=== PATIENT | female | born 1955 | race Caucasian/White ===

== ENCOUNTER 2016-04-18 22:35 | Emergency (ER) | payer BC ==
[2016-04-18] MEDS ORDERED: Sodium Chloride 0.9% 1,000 ML IV SCH (23:00)
[2016-04-18] MEDS ORDERED: HYDROmorphone 1 MG/ML Syringe IVPUSH ONE (23:14)
[2016-04-18] MEDS ORDERED: Ondansetron 4 MG/2 ML SDV IVPUSH ONE (23:39)
[2016-04-19 00:40] VITALS: BP 131/69
--- NOTE | 2016-04-19 00:49 | EDM.PDOC ---
ED HPI GI/ABDOMINAL - General Chief Complaint: Flank Pain Stated Complaint: RIGHT SIDE FLANK PAIN Time Seen by Provider: 04/18/16 22:52 Source: Reports: Patient, Family () History Limitations: Reports: No limitations - History of Present Illness INITIAL COMMENTS - FREE TEXT/NARRATIVE: Right flank pain, and Mrs. Esteban report were out to dinner this evening when she develops right flank pain. This pain was similar to her previous kidney stones in December 2015, pain did not resolve, made the decision to return to ER for further care and evaluation. Abdomen pelvis CT done 12/31/2015 showed bilateral nonobstructing kidney stone Timing/Duration: Reports: Hour(s): Location: RUQ Quality: Reports: stabbing, throbbing Severity: severe (Pain waxes and wanes. Rates pain at at 8/10) Context: Reports: other (Previous history of kidney stones) Associated Symptoms (-Female): Reports: loss of appetite - Related Data Allergies/ADRs: Allergies Allergy/AdvReac Type Severity Reaction Status Date / Time No Known Allergies Allergy Verified 04/18/16 23:01 Home Meds: Home Meds Aspirin [Halfprin] 81 mg PO DAILY 11/15/15 [History] Cholecalciferol (Vitamin D3) [Vitamin D3] 5,000 unit PO BID 11/15/15 [History] Lisinopril 10 mg PO DAILY 11/15/15 [History] atorvaSTATin Calcium [Atorvastatin Calcium] 10 mg PO BEDTIME 11/15/15 [History] metFORMIN HCl [Metformin HCl] 1,000 mg PO BID 11/15/15 [History] Past Medical History HEENT History: Reports: Impaired vision Cardiovascular History: Reports: Hypertension Genitourinary History: Reports: Renal 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: Endocrine/Metabolic History: Reports: Diabetes, type II - Infectious Disease History Infectious Disease History: Reports: Chicken pox, Measles, Mumps Social & Family History - Tobacco Use Smoking Status *Q: Never Smoker - Caffeine Use Caffeine Use: Reports: Tea - Recreational Drug Use Recreational Drug Use: No - Living Situation & Occupation Living situation: Reports: (Lives with in [facility]) ED ROS GENERAL - Review of Systems Review Of Systems: See Below Constitutional: Reports: other (Right flank pain) HEENT: Reports: No symptoms Respiratory: Reports: no symptoms Cardiovascular: Reports: No symptoms Endocrine: Reports: no symptoms GI/Abdominal: Reports: Decreased appetite, Nausea, Other (Right flank pain) : Reports: flank pain, hematuria (Reports urine was clear by clinic tests 2 weeks), urgency, urinary retention 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: Reports: other (Bilateral mid back pain) Skin: Reports: no symptoms Neurological: Reports: no symptoms Psychiatric: Reports: No symptoms Hematologic/Lymphatic: Reports: no symptoms Immunologic: Reports: no symptoms ED EXAM, GI/ABD - Physical Exam Exam: See Below Exam Limited By: No limitations General Appearance: alert, WD/WN, no apparent distress Eyes: bilateral: normal appearance, EOMI Ears: normal external exam, hearing grossly normal Nose: normal inspection Throat/Mouth: Normal lips Head: atraumatic, normocephalic Neck: normal inspection, supple, non-tender, full range of motion Respiratory/Chest: no respiratory distress, lungs clear, normal breath sounds, no accessory muscle use, chest non-tender Cardiovascular: normal peripheral pulses, regular rate, rhythm, no edema, no gallop, no JVD, no murmur, no rub GI/Abdominal: normal bowel sounds, soft, non tender, no organomegaly, no distention, no abnormal bruit, no mass (Female) Exam: Deferred Rectal (Female) Exam: Deferred Back Exam: normal inspection, full range of motion, NT Extremities: normal inspection, normal range of motion, non-tender, normal capillary refill, no pedal edema Neurological: alert, oriented, normal cognition, normal gait, no motor/sensory deficits Psychiatric: normal affect, normal mood Skin Exam: Warm, Dry, Intact, Normal color, No rash Lymphatic: no adenopathy Course - Vital Signs Last Recorded V/S: Last Vital Signs Temp 36.3 C 04/19/16 00:38 Pulse 66 04/19/16 00:38 Resp 16 04/19/16 00:38 BP 131/69 04/19/16 00:38 Pulse Ox 95 04/19/16 00:38 - Orders/Labs/Meds Orders: Active Orders 24 hr Category Date Time Status Kidney Stone Protocol [CT] Stat Exams 04/19/16 00:05 Taken Sodium Chloride 0.9% [Normal Saline] 1,000 ml Med 04/18/16 23:00 Active IV ASDIRECTED Medication Orders Sodium Chloride (Normal Saline) 1,000 mls @ 999 mls/hr IV ASDIRECTED [facility] Last Admin: 04/18/16 23:43 Dose: 999 mls/hr Labs: Laboratory Tests 04/18/16 Range/Units 23:35 Urine Color Brown Urine Appearance Cloudy Urine pH 5.0 (4.5-8.0) Ur Specific [place] 1.025 (1.008-1.030) Urine Protein 30 H (NEGATIVE) mg/dL Urine Glucose (UA) 100 H (NEGATIVE) mg/dL Urine Ketones Negative (NEGATIVE) mg/dL Urine Occult Blood Large (NEGATIVE) Urine Nitrite Negative (NEGATIVE) Urine Bilirubin Small (NEGATIVE) Urine Urobilinogen 1 (NORMAL) mg/dL Ur Leukocyte Esterase Small (NEGATIVE) Urine RBC >100 H (0-5) Urine WBC 0-5 (0-5) Ur Epithelial Cells Rare Amorphous Sediment Not seen Urine Bacteria Many Urine Mucus Not seen Urine Other Meds: Medications Generic Name Dose Route Start Last Admin Trade Name Freq PRN Reason Stop Dose Admin Sodium Chloride 1,000 mls @ 999 mls/hr 04/18/16 23:00 04/18/16 23:43 Normal Saline IV 999 mls/hr ASDIRECTED [facility] Administration Discontinued Medications Generic Name Dose Route Start Last Admin Trade Name Freq PRN Reason Stop Dose Admin Hydromorphone HCl 1 mg 04/18/16 23:14 04/18/16 23:52 Dilaudid IVPUSH 04/18/16 23:15 1 mg ONETIME ONE Administration Ondansetron HCl 4 mg 04/18/16 23:39 04/18/16 23:52 Zofran IVPUSH 04/18/16 23:40 4 mg ONETIME ONE Administration - Re-Assessments/Exams Free Text/Narrative Re-Assessment/Exam: 04/19/16 00:56 Given 1 L normal saline, IV Dilaudid 1 mg, Zofran [address] scan renal protocol shows bilateral kidney stones. See full report this was reviewed with patient and copy given to them Advised to followup with primary care for recheck, would recommend evaluation by urology Departure - Departure Time of Disposition: 00:59 Disposition: Home, Self-Care 01 Condition: good Clinical Impression: Bilateral kidney stones Instructions: Kidney Stones, [id number] Referrals: Peggy Vazquez PA [Primary Care Provider] - Forms: ED Department Discharge Care Plan Goals: Bilateral kidney stones -CT report shows bilateral kidney stones -Advised to push fluids, 8-10 glasses of water per day -Start Flomax 0.4 mg by mouth daily, start in a.m. -May take a previous prescription narcotic Percocet 5/325 mg take one to 2 every 4-6 when necessary pain Followup with primary care for recheck on Wednesday or Wednesday May need to consider evaluation by specialist Return to emergency room if has fever, chills, nausea, vomiting, rash, or not improved. - Problem List & Annotations (1) Bilateral kidney stones SNOMED Code(s): 85521499 Code(s): N20.0 - CALCULUS OF KIDNEY Status: Acute Priority: High Current Visit: Yes - Problem List Review Problem List Initiated/Reviewed/Updated: Yes - My Orders Last 24 Hours: My Active Orders 04/18/16 23:00 Sodium Chloride 0.9% [Normal Saline] 1,000 ml IV ASDIRECTED 04/19/16 00:05 Kidney Stone Protocol [CT] Stat - Assessment/Plan Last 24 Hours: My Active Orders 04/18/16 23:00 Sodium Chloride 0.9% [Normal Saline] 1,000 ml IV ASDIRECTED 04/19/16 00:05 Kidney Stone Protocol [CT] Stat Plan: Bilateral kidney stones -CT report shows bilateral kidney stones see full report -Advised to push fluids, 8-10 glasses of water per day -Start Flomax 0.4 mg by mouth daily, start in a.m. -May take a previous prescription narcotic Percocet 5/325 mg take one to 2 every 4-6 when necessary pain Followup with primary care for recheck on Wednesday or Wednesday May need to consider evaluation by specialist Return to emergency room if has fever, chills, nausea, vomiting, rash, or not improv
[2016-04-19] MEDS ORDERED: HYDROmorphone 1 MG/ML Syringe IVPUSH ONE (01:07)
== END 2016-04-19 01:23 | disposition home or self-care (01) ==
LOC: JP.ED 22:35
DX: N20.0 Calculus of kidney (principal); E11.9 Type 2 diabetes mellitus without complications; I10 Essential (primary) hypertension; Z87.442 Personal history of urinary calculi; Z79.82 Long term (current) use of aspirin; Z79.84 Long term (current) use of oral hypoglycemic drugs
CPT/HCPCS: 74176; 81001; 96361; 96374; 96375; 96376; 99284; J1170; J2405; J7040

== ENCOUNTER 2016-11-22 16:40 | Emergency (ER) | payer BC, OTHER ==
[2016-11-22 17:06] VITALS: BP 142/80
--- NOTE | 2016-11-22 17:21 | EDM.PDOC ---
ED HPI GENERAL MEDICAL PROBLEM - General Chief Complaint: Upper Extremity Injury/Pain Stated Complaint: JAMMED THUMB Time Seen by Provider: 11/22/16 17:05 Source of Information: Reports: Patient History Limitations: Reports: No Limitations - History of Present Illness INITIAL COMMENTS - FREE TEXT/NARRATIVE: Joleen presents to the ER today with complaints of left thumb pain after jamming her thumb while walking on a stair-case. She states she did take ibuprofen yesterday and had some pain relief with its use. Onset Date: 11/21/16 Duration: Hour(s): Location: Reports: Other (Left thumb) Quality: Reports: Ache, Dull, Throbbing Severity: Moderate Improves with: Reports: Medication, Rest Worsens with: Reports: Movement Left 1-Thumb Pain Score (Numeric/FACES): 4 - Related Data Allergies Allergy/AdvReac Type Severity Reaction Status Date / Time No Known Allergies Allergy Verified 11/22/16 17:06 Home Meds: Home Meds Aspirin [Halfprin] 81 mg PO DAILY 11/15/15 [History] Lisinopril 10 mg PO DAILY 11/15/15 [History] atorvaSTATin Calcium [Atorvastatin Calcium] 10 mg PO BEDTIME 11/15/15 [History] metFORMIN HCl [Metformin HCl] 1,000 mg PO BID 11/15/15 [History] Cholecalciferol (Vitamin D3) [Vitamin D3] 1 cap PO BID 11/22/16 [History] Past Medical History HEENT History: Reports: Impaired Vision Cardiovascular History: Reports: High Cholesterol, Hypertension Genitourinary History: Reports: Renal 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: Endocrine/Metabolic History: Reports: Diabetes, Type II - Infectious Disease History Infectious Disease History: Reports: Chicken Pox, Measles, Mumps Social & Family History - Tobacco Use Smoking Status *Q: Never Smoker - Caffeine Use Caffeine Use: Reports: Tea - Recreational Drug Use Recreational Drug Use: No - Living Situation & Occupation Living situation: Reports: Review of Systems - Review of Systems Review Of Systems: See Below Constitutional: Denies: Chills, Fever 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: Reports: Hand Pain, Other (left thumb pain and swelling.) Skin: Reports: Bruising, Other (edema) Neurological: Reports: No Symptoms ED EXAM, GENERAL - Physical Exam Exam: See Below Free Text/Narrative:: Joleen presents to the emergency room today with complaints of left thumb pain after injury 24 hours ago. She jammed her left thumb while using the stairs yesterday. She denies deformity at time of injury. She tried use of ibuprofen last night for pain with some relief. Left thumb tender with edema and ecchymosis. Full sensation in tact with decrease ROM. Exam Limited By: No Limitations General Appearance: Alert, WD/WN, Mild Distress Respiratory/Chest: No Respiratory Distress, Lungs Clear, Normal Breath Sounds, No Accessory Muscle Use, Chest Non-Tender Cardiovascular: Normal Peripheral Pulses, Regular Rate, Rhythm, No Edema, No Murmur, No Rub Peripheral Pulses: 2+: Radial (L), Radial (R) Extremities: Normal Capillary Refill, Other (tenderness, ecchymosis and edema to left thumb, decrease ROM. ) Neurological: Alert, Oriented, CN II-XII Intact, Normal Cognition, Normal Gait, Normal Reflexes, No Motor/Sensory Deficits Psychiatric: Normal Affect, Normal Mood Skin Exam: Warm, Dry, Intact, No Rash, Ecchymosis Lymphatic: No Adenopathy Course - Vital Signs Last Recorded V/S: Last Vital Signs Temp 37.3 C 11/22/16 17:04 Pulse 77 11/22/16 17:04 Resp 16 11/22/16 17:04 BP 142/80 H 11/22/16 17:04 Pulse Ox 98 11/22/16 17:04 - Orders/Labs/Meds Orders: Active Orders 24 hr Category Date Time Status Fingers Thumb Lt FA [CR] Stat Exams 11/22/16 17:15 Taken - Radiology Interpretation Free Text/Narrative:: X-ray reviewed, wet read. nondisplaced thumb fracture of the distal phalanx. Reviewed x-ray with patient, all her questions answered. Thumb splint applied, she can follow up with ortho this week. Departure - Departure Time of Disposition: 17:46 Disposition: Home, Self-Care 01 Condition: Good Clinical Impression: Closed fracture of distal phalanx of left thumb - Discharge Information Referrals: Peggy Vazquez PA [Primary Care Provider] - Forms: ED Department Discharge Additional Instructions: You have a nondisplaced left thumb distal phalanx fracture. Keep splint on at all times, except bathing. You can take ibuprofen (Motrin, Advil) 800mg by mouth three times a day with food for pain as needed. Alternate with: Acetaminophen (tylenol) 650 to 1000mg by mouth three times a day for pain as needed. Rest, elevate and ie your thumb to help with the pain. Follow up with Ortho this week for a recheck. Return for worsening issues or concerns. - My Orders Last 24 Hours: My Active Orders 11/22/16 17:15 Fingers Thumb Lt FA [CR] Stat - Assessment/Plan Last 24 Hours: My Active Orders 11/22/16 17:15 Fingers Thumb Lt FA [CR] Stat Assessment:: Nondisplaced left thumb distal phalanx fracture. Thumb splint placed. Plan: Patient has a nondisplaced left thumb distal phalanx fracture. Keep splint on at all times, except bathing. She can take ibuprofen (Motrin, Advil) 800mg by mouth three times a day with food for pain as needed. Alternate with: Acetaminophen (tylenol) 650 to 1000mg by mouth three times a day for pain as needed. Rest, elevate and ie your thumb to help with the pain. Follow up with Ortho this week for a recheck. Return for worsening issues or concerns.
--- NOTE | 2016-11-23 11:07 | CR ---
Fingers Thumb Lt FA INDICATION: pain to left thumb FINDINGS: Acute, mildly displaced, transverse fracture through the distal phalanx of the left thumb.
== END 2016-11-22 18:05 | disposition home or self-care (01) ==
LOC: JP.ED 16:40
DX: S62.525A Nondisplaced fracture of distal phalanx of left thumb, initial encounter for closed fracture (principal); I10 Essential (primary) hypertension; E11.9 Type 2 diabetes mellitus without complications; Z79.84 Long term (current) use of oral hypoglycemic drugs; Z79.82 Long term (current) use of aspirin; W23.1XXA Caught, crushed, jammed, or pinched between stationary objects, initial encounter; Y99.0 Civilian activity done for income or pay
CPT/HCPCS: 73140-26-FA; 73140-FA; 99284

== ENCOUNTER 2019-01-10 07:03 | Emergency (ER) | payer BC ==
[2019-01-10 07:18] VITALS: BP 154/63; PULSE 76
--- NOTE | 2019-01-10 07:33 | EDM.PDOC ---
ED HPI GENERAL MEDICAL PROBLEM - General Chief Complaint: Genitourinary Problem Stated Complaint: MAYBE KIDNEY STONES??? Time Seen by Provider: 01/10/19 07:27 Source of Information: Reports: Patient, Family, RN Notes Reviewed History Limitations: Reports: No Limitations - History of Present Illness INITIAL COMMENTS - FREE TEXT/NARRATIVE: 63-year-old female presents emergency department with a complaint of left flank pain, she has extensive history of nephrolithiasis believes this is a similar event pain started last night did have some nausea and vomiting no fevers no other symptoms Left Middle Back Pain Score (Numeric/FACES): 8 - Related Data Allergies Allergy/AdvReac Type Severity Reaction Status Date / Time No Known Allergies Allergy Verified 01/10/19 07:17 Home Meds: Home Meds Aspirin [Halfprin] 81 mg PO DAILY 11/15/15 [History] Lisinopril 10 mg PO DAILY 11/15/15 [History] atorvaSTATin Calcium [Atorvastatin Calcium] 10 mg PO BEDTIME 11/15/15 [History] metFORMIN HCl [Metformin HCl] 1,000 mg PO BID 11/15/15 [History] Cholecalciferol (Vitamin D3) [Vitamin D3] 5,000 units PO BID 11/22/16 [History] Ubidecarenone [Coenzyme Q-10] 1 cap PO DAILY 10/04/18 [History] Ketorolac [Toradol] 10 mg PO TID PRN #20 tab 01/10/19 [Rx] Past Medical History HEENT History: Reports: Impaired Vision, Other (See Below) Other HEENT History: wears glasses Cardiovascular History: Reports: High Cholesterol, Hypertension, Other (See Below) Other Cardiovascular History: EKG and echo done in October, EKG showed some abnormalities Genitourinary History: Reports: 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: 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 History: Reports: Fracture Other 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 History: left thumb Endocrine/Metabolic History: Reports: Diabetes, Type II Hematologic History: Reports: Iron Deficiency - Infectious Disease History Infectious Disease History: Reports: Chicken Pox, Measles, Mumps - Past Surgical History Cardiovascular Surgical History: Reports: None Female Surgical History: Reports: Cystoscopy, Kidney stone extraction, Lithotripsy/[facility] Endocrine Surgical History: Reports: None 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 Surgical History: Reports: None Social & Family History - Family History Family Medical History: Noncontributory - Tobacco Use Smoking Status *Q: Never Smoker Second Hand Smoke Exposure: No - Caffeine Use Caffeine Use: Reports: Tea Caffeine Use Comment: rarely - Recreational Drug Use Recreational Drug Use: No - Living Situation & Occupation Living situation: Reports: ED ROS GENERAL - Review of Systems Review Of Systems: See Below Constitutional: Denies: Fever, Chills HEENT: Reports: No Symptoms Respiratory: Reports: No Symptoms Cardiovascular: Reports: No Symptoms GI/Abdominal: Reports: Abdominal Pain, Nausea, Vomiting : Reports: Flank Pain ED EXAM, RENAL/ - Physical Exam Exam: See Below Exam Limited By: No Limitations General Appearance: Alert, WD/WN, No Apparent Distress Respiratory/Chest: No Respiratory Distress, Lungs Clear, Normal Breath Sounds, No Accessory Muscle Use, Chest Non-Tender Cardiovascular: Regular Rate, Rhythm, No Murmur GI/Abdominal: Soft, Non-Tender Back Exam: Normal Inspection, Full Range of Motion, CVA Tenderness (L) Course - Vital Signs Last Recorded V/S: Last Vital Signs Temp 97.1 F 01/10/19 07:15 Pulse 76 01/10/19 07:15 Resp 16 01/10/19 07:15 BP 154/63 H 01/10/19 07:15 Pulse Ox 100 01/10/19 07:15 - Orders/Labs/Meds Orders: Active Orders 24 hr Category Date Time Status UA W/MICROSCOPIC [URIN] Urgent Lab 01/10/19 07:07 Ordered Meds: Medications Discontinued Medications Generic Name Dose Route Start Last Admin Trade Name Sixto PRN Reason Stop Dose Admin Ketorolac Tromethamine 60 mg 01/10/19 07:31 01/10/19 07:49 Toradol IM 01/10/19 07:32 60 mg ONETIME ONE Administration Ondansetron HCl 4 mg 01/10/19 07:31 01/10/19 07:49 Zofran Odt PO 01/10/19 07:32 4 mg ONETIME ONE Administration Departure - Departure Time of Disposition: 08:45 Disposition: Home, Self-Care 01 Condition: Fair Clinical Impression: Hydronephrosis with renal and ureteral calculus obstruction - Discharge Information Instructions: Kidney Stones, [id number] Referrals: Peggy Vazquez PA [Primary Care Provider] - Forms: ED Department Discharge Additional Instructions: Continue to use Toradol as needed for pain control, your medications have been faxed to [facility], your CT scan was also sent to [facility]. Please contact your urologist today for an appointment time with further evaluation, call or return to the emergency department worsening of symptoms - My Orders Last 24 Hours: My Active Orders 01/10/19 07:07 UA W/MICROSCOPIC [URIN] Urgent - Assessment/Plan Last 24 Hours: My Active Orders 01/10/19 07:07 UA W/MICROSCOPIC [URIN] Urgent Plan: Assessment Acuity = acute Site and laterality = 8 mm nephrolithiasis left ureter causing moderate hydronephrosis Etiology = unknown Manifestations = nausea Location of injury = Home Lab values = CT scan described as noted above Plan I did review CT scan results with her and provided her a copy of also sent the films to her urologist at [facility]. She did get good relief from the Toradol provided prescription written for Toradol 10 mg p.o. 3 times daily as needed total #20 faxed to [facility] she is going to contact her urologist today for an upcoming appointment. This stone is very similar to the stone she had last year in 2018 This note was dictated using [employer] voice recognition software please call with any questions on syntax or grammar.
[2019-01-10] MEDS: Ketorolac 60 MG/2 ML SDV IM ONE (07:49)
[2019-01-10] MEDS: Ondansetron 4 MG Tab.DIS PO ONE (07:49)
--- NOTE | 2019-01-10 08:22 | CRLCT ---
HISTORY: Left flank pain. COMPARISON: CT abdomen and pelvis 11/19/2017. Technique noncontrast CT abdomen pelvis. Coronal sagittal reformatted images obtained. Findings: Heart size is normal. Lung bases are clear. The spleen unenhanced liver pancreas is unremarkable. Small hiatal hernia. Gallbladder is unremarkable. No abdominal aortic aneurysm. Bilateral nonobstructing renal calculi. There is moderate left hydronephrosis and hydroureter with a 8 mm stone in the mid ureter possible additional tiny stones at this location. This has a very similar appearance to the prior CT scan from 2018 with stone near the same location. There is perinephric stranding. Hounsfield units of 1160. Urinary bladder is unremarkable. Diverticulosis. Abundant stool in the colon. Normal appendix. Impression : 1. Left moderate hydronephrosis and hydroureter with the 8 millimeter left mid ureteral stone. Hounsfield unit 11 60. This has a very similar appearance to the prior CT scan with stone near the same location. Additional bilateral nonobstructing renal calculi Please note that all CT scans at this facility use dose modulation, iterative reconstruction, and/or weight-based dosing when appropriate to reduce radiation dose to as low as reasonably achievable. Dictated by Opal Forte MD @ Jan 10 2019 8:14AM Signed by Dr. Opal Forte @ Jan 10 2019 8:21AM
== END 2019-01-10 09:11 | disposition home or self-care (01) ==
LOC: JP.ED 07:03
DX: N13.2 Hydronephrosis with renal and ureteral calculous obstruction (principal); E78.00 Pure hypercholesterolemia, unspecified; I10 Essential (primary) hypertension; E11.9 Type 2 diabetes mellitus without complications; Z79.82 Long term (current) use of aspirin; Z79.899 Other long term (current) drug therapy; Z79.84 Long term (current) use of oral hypoglycemic drugs
CPT/HCPCS: 74176; 96372; 99284-25; A9270-GY; J1885

== ENCOUNTER 2020-09-23 11:40 | Emergency (ER) | payer OTHER, BC ==
[2020-09-23 12:03] VITALS: BP 126/69; PULSE 80
--- NOTE | 2020-09-23 12:36 | EDM.PDOC ---
ED HPI GENERAL MEDICAL PROBLEM - General Chief Complaint: Upper Extremity Injury/Pain Stated Complaint: FELL AND HIT RIGHT ARM AND SHOULDER Time Seen by Provider: 09/23/20 12:11 Source of Information: Reports: Patient History Limitations: Reports: No Limitations - History of Present Illness INITIAL COMMENTS - FREE TEXT/NARRATIVE: 65 yo female presents to ER with pain in right arm after fall. She was carrying boxes and lost her balance falling on to the right upper arm. she also hit her forehead and tried to catch herself with her left arm. denies LOC or current headache. pain in right upper arm and shoulder. right arm Pain Score (Numeric/FACES): 8 - Related Data Allergies Allergy/AdvReac Type Severity Reaction Status Date / Time No Known Allergies Allergy Verified 09/23/20 12:04 Home Meds: Home Meds Aspirin [Halfprin] 81 mg PO DAILY 11/15/15 [History] Lisinopril 10 mg PO DAILY 11/15/15 [History] atorvaSTATin Calcium [Atorvastatin Calcium] 10 mg PO BEDTIME 11/15/15 [History] metFORMIN HCl [Metformin HCl] 1,000 mg PO BID 11/15/15 [History] Cholecalciferol (Vitamin D3) [Vitamin D3] 5,000 units PO BID 11/22/16 [History] Ubidecarenone [Coenzyme Q-10] 1 cap PO DAILY 10/04/18 [History] Ketorolac [Toradol] 10 mg PO TID PRN #20 tab 01/10/19 [Rx] Past Medical History HEENT History: Reports: Impaired Vision, Other (See Below) Other HEENT History: wears glasses Cardiovascular History: Reports: High Cholesterol, Hypertension, Other (See Below) Other Cardiovascular History: EKG and echo done in October, EKG showed some abnormalities Genitourinary History: Reports: Renal Calculus 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: 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 History: Reports: Fracture Other 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 History: left thumb Endocrine/Metabolic History: Reports: Diabetes, Type II Hematologic History: Reports: Iron Deficiency - Infectious Disease History Infectious Disease History: Reports: Chicken Pox, Measles, Mumps - Past Surgical History Cardiovascular Surgical History: Reports: None Female Surgical History: Reports: Cystoscopy, Kidney stone extraction, Lithotripsy/[facility] Endocrine Surgical History: Reports: None 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 Surgical History: Reports: None Social & Family History - Family History Family Medical History: No Pertinent Family History - Tobacco Use Tobacco Use Status *Q: Never Tobacco User - Caffeine Use Caffeine Use: Reports: Tea Caffeine Use Comment: rarely - Recreational Drug Use Recreational Drug Use: No - Living Situation & Occupation Living situation: Reports: Review of Systems - Review of Systems Review Of Systems: See Below Constitutional: Denies: Chills, Fever Respiratory: Denies: Shortness of Breath, Cough Cardiovascular: Denies: Chest Pain 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: Reports: Arm Pain, Joint Pain Skin: Denies: Rash ED EXAM, GENERAL - Physical Exam Exam: See Below Exam Limited By: No Limitations General Appearance: Alert, WD/WN, No Apparent Distress Head: Normocephalic, Other (superficial abrasion to the forehead ) Neck: Normal Inspection, Supple, Non-Tender, Full Range of Motion. No: Tender Midline Respiratory/Chest: Lungs Clear. No: Crackles, Rhonchi, Wheezing Cardiovascular: Regular Rate, Rhythm, No Murmur GI/Abdominal: Soft, Non-Tender Extremities: Arm Pain (midshaft to right humeral proximal head tenderness to palpation, moderate edema) Course - Vital Signs Last Recorded V/S: Last Vital Signs Temp 36.4 C 09/23/20 11:57 Pulse 80 09/23/20 11:57 Resp 12 09/23/20 11:57 BP 126/69 09/23/20 11:57 Pulse Ox 98 09/23/20 11:57 - Orders/Labs/Meds Orders: Active Orders 24 hr Category Date Time Status Glucose [Blood Glucose Check, Bedside] [RC] ONETIME Care 09/23/20 13:38 Active Sodium Chloride 0.9% [Saline Flush] Med 09/23/20 13:33 Active 10 ml FLUSH ASDIRECTED PRN Saline Lock Insert [OM.PC] Routine Oth 09/23/20 13:33 Ordered Medication Orders Sodium Chloride (Sodium Chloride 0.9% 10 Ml Syringe) 10 ml FLUSH ASDIRECTED PRN PRN Reason: Keep Vein Open Last Admin: 09/23/20 13:49 Dose: 10 ml Documented by: MICHAEL Labs: Laboratory Tests 09/23/20 Range/Units 14:03 POC Glucose 139 H (74-106) mg/dL Meds: Medications Generic Name Dose Route Start Last Admin Trade Name Freq PRN Reason Stop Dose Admin Sodium Chloride 10 ml 09/23/20 13:33 09/23/20 13:49 Sodium Chloride 0.9% 10 Ml Syringe FLUSH 10 ml ASDIRECTED PRN Administration Keep Vein Open Discontinued Medications Generic Name Dose Route Start Last Admin Trade Name Sixto PRN Reason Stop Dose Admin Morphine Sulfate 2 mg 09/23/20 13:32 09/23/20 13:47 Morphine 2 Mg/Ml Syringe IVPUSH 09/23/20 13:33 2 mg ONETIME ONE Administration Ondansetron HCl 4 mg 09/23/20 13:32 09/23/20 13:48 Ondansetron 4 Mg/2 Ml Sdv IVPUSH 09/23/20 13:33 4 mg ONETIME ONE Administration - Re-Assessments/Exams Free Text/Narrative Re-Assessment/Exam: 09/23/20 14:02 x-ray proximal right humerus head fracture. Dr. Mustafa consulted. pt placed in a sling and will follow-up with him next week. 09/23/20 14:11 Departure - Departure Time of Disposition: 14:11 Disposition: Home, Self-Care 01 Clinical Impression: Fracture of humeral head, right, closed Qualifiers: Encounter type: initial encounter Qualified Code(s): S42.291A - Other displaced fracture of upper end of right humerus, initial encounter for closed fracture - Discharge Information *PRESCRIPTION DRUG MONITORING PROGRAM REVIEWED*: Not Applicable *COPY OF PRESCRIPTION DRUG MONITORING REPORT IN PATIENT TIFF: Not Applicable Instructions: Humerus Fracture Treated With Immobilization, [id number]-[id number] Referrals: Genevieve Cortes MD [Primary Care Provider] - Forms: ED Department Discharge Additional Instructions: keep sling in place until you follow-up next week with orthopedics call Dr. Mustafa today to make appointment for next week norco 1 tablet every 4 hours as needed for pain ibuprofen 400-600 mg every 6 hours fro pain ice as much as possible over the next 3 days Sepsis Event Note (ED) - Evaluation Sepsis Screening Result: No Definite Risk - Focused Exam Vital Signs: Vital Signs Temp Pulse Resp BP Pulse Ox 09/23/20 11:57 36.4 C 80 12 126/69 98 - My Orders Last 24 Hours: My Active Orders 09/23/20 13:33 Sodium Chloride 0.9% [Saline Flush] 10 ml FLUSH ASDIRECTED PRN Saline Lock Insert [OM.PC] Routine 09/23/20 13:38 Glucose [Blood Glucose Check, Bedside] [RC] ONETIME - Assessment/Plan Last 24 Hours: My Active Orders 09/23/20 13:33 Sodium Chloride 0.9% [Saline Flush] 10 ml FLUSH ASDIRECTED PRN Saline Lock Insert [OM.PC] Routine 09/23/20 13:38 Glucose [Blood Glucose Check, Bedside] [RC] ONETIME
--- NOTE | 2020-09-23 13:24 | CR ---
Humerus Rt, Shoulder Comp Rt CLINICAL HISTORY: Trauma FINDINGS: There is a comminuted minimally displaced fracture of the proximal humerus extending through the greater tubercle. IMPRESSION: Comminuted minimally displaced fracture of the proximal humerus Shoulder Comp Rt CLINICAL HISTORY: Trauma FINDINGS: There is a minimally displaced comminuted fracture of the proximal humerus. There is no evidence of dislocation. Scapula appears intact. Impression: Proximal humeral fracture
[2020-09-23] MEDS ORDERED: Morphine 2 MG/ML SYRINGE IVPUSH ONE (13:32)
[2020-09-23] MEDS ORDERED: Ondansetron 4 MG/2 ML SDV IVPUSH ONE (13:32)
[2020-09-23] MEDS ORDERED: Sodium Chloride 0.9% 10 ML Syringe FLUSH PRN (13:33)
[2020-09-23] MEDS ORDERED: Ketorolac 10 MG Tab PO ONE (14:38)
[2020-09-23] MEDS ORDERED: Acetaminophen/HYDROcodone 325-5 MG Tab PO ONE (14:39)
== END 2020-09-23 14:57 | disposition home or self-care (01) ==
LOC: JP.ED 11:40
DX: S42.291A Other displaced fracture of upper end of right humerus, initial encounter for closed fracture (principal); E78.00 Pure hypercholesterolemia, unspecified; I10 Essential (primary) hypertension; E11.9 Type 2 diabetes mellitus without complications; Z79.84 Long term (current) use of oral hypoglycemic drugs; Z79.82 Long term (current) use of aspirin; Z79.899 Other long term (current) drug therapy; W01.0XXA Fall on same level from slipping, tripping and stumbling without subsequent striking against object, initial encounter
CPT/HCPCS: 73030; 73060; 82947; 96374; 96375; 99283; A9270; J2270; J2405

== ENCOUNTER 2023-01-26 17:44 | Inpatient (IN) | payer MEDICARE, BC ==
[2023-01-26] MEDS ORDERED: Acetaminophen/HYDROcodone 325-5 MG Tab PO ONE (18:58)
[2023-01-26 19:12] LABS: BASOPHILS ABSOLUTE AUTO 0.02 K/uL (0.00-0.10); BASOPHILS PERCENT AUTO 0.4 % (0.1-1.3); HEMATOCRIT 41.4 % (34.3-46.0); IMMATURE GRAN ABSOLUTE AUTO 0.01 K/uL (0.00-0.23); IMMATURE GRAN PERCENT AUTO 0.2 % (0.0-0.7); LYMPHOCYTES ABSOLUTE AUTO 1.34 K/uL (0.8-3.3); LYMPHOCYTES PERCENT AUTO 25.5 % (11.4-47.7); MEAN CORPUSCULAR HGB CONC 33.8 g/dL (31.6-35.5); MEAN CORPUSCULAR VOLUME 85.7 fL (81.4-99.0); MONOCYTES PERCENT AUTO 9.5 % (3.3-12.6); NEUTROPHILS ABSOLUTE AUTO 3.38 K/uL (1.0-7.6); NEUTROPHILS PERCENT AUTO 64.4 % (40.0-78.1); PLATELET COUNT,PLT 191 K/uL (130-375); RED BLOOD CELL COUNT 4.83 M/uL (3.77-5.24); WHITE BLOOD CELL COUNT,WBC 5.3 K/uL (3.2-11.0)
[2023-01-26 19:48] LABS: A/G RATIO 1.3 (1.2-2.2); ALANINE AMINOTRANSFERASE,ALT 38 U/L (12-78); ALBUMIN 4.3 g/dL (3.4-5.0); ALKALINE PHOSPHATASE 74 U/L (46-116); ASPARTATE AMNIOTRANSFERASE,AST 20 U/L (15-37); BILIRUBIN TOTAL 0.6 mg/dL (0.2-1.0); BLOOD UREA NITROGEN,BUN 20 mg/dL (7-18); CALCIUM 9.3 mg/dL (8.5-10.1); CARBON DIOXIDE,CO2 25 mmol/L (21-32); CHLORIDE,CL 101 mmol/L (100-108); CREATININE 0.7 mg/dL (0.6-1.0); EST CRCL DRUG DOSING (CG) 69.19 mL/min; ESTIMATED GFR 96 mL/min (>60); GLUCOSE RANDOM 190 mg/dL (74-106); POTASSIUM,K 4.4 mmol/L (3.6-5.2); PROTEIN TOTAL,TP 7.6 g/dL (6.4-8.2); SODIUM,NA 138 mmol/L (140-148)
[2023-01-26 19:59] LABS: ANION GAP 16.4 mmol/L (5.0-14.0)
[2023-01-26 20:20] LABS: CORONAVIRUS COVID-19 NAA NEGATIVE (NEGATIVE); INFLUENZA A NAA NEGATIVE (NEGATIVE); INFLUENZA B NAA NEGATIVE (NEGATIVE); RESPIRATORY SYNCYTIAL VIR NAA NEGATIVE (NEGATIVE)
[2023-01-26] MEDS ORDERED: Acetaminophen/HYDROcodone 325-5 MG Tab PO PRN (21:28)
[2023-01-26] MEDS ORDERED: Ondansetron 4 MG Tab.DIS PO PRN (21:28)
[2023-01-26] MEDS ORDERED: Bisacodyl 5 MG Tab PO PRN (21:28)
[2023-01-26] MEDS ORDERED: Pantoprazole 40 MG Vial IV ONE (21:28)
[2023-01-26] MEDS ORDERED: Docusate Sodium 100 MG Cap PO PRN (21:28)
[2023-01-26] MEDS ORDERED: Ondansetron 4 MG/2 ML SDV IV PRN (21:28)
[2023-01-26] MEDS ORDERED: Naloxone 0.4 MG/ML SDV IVPUSH PRN (21:34)
[2023-01-26] MEDS: Sodium Chloride 0.9% 1,000 ML IV SCH (22:11)
[2023-01-26] MEDS: HYDROmorphone 1 MG/ML Syringe IVPUSH PRN (22:23)
[2023-01-27 00:19] LABS: APPEARANCE,URINE CLEAR (CLEAR); BILIRUBIN,URINE NEGATIVE (NEGATIVE); COLOR,URINE YELLOW (YELLOW); GLUCOSE,URINE 500 mg/dL (NEGATIVE); KETONES,URINE 15 mg/dL (NEGATIVE); LEUKOCYTE ESTERASE,URINE NEGATIVE (NEGATIVE); NITRITE,URINE NEGATIVE (NEGATIVE); OCCULT BLOOD,URINE TRACE-INTACT (NEGATIVE); PROTEIN,URINE NEGATIVE (NEGATIVE)
[2023-01-27 01:24] LABS: AMORPHOUS SEDIMENT,URINE NOT SEEN; BACTERIA,URINE RARE; EPITHELIAL CELLS,URINE FEW; MUCUS,URINE NOT SEEN; RBC,URINE 0-5 (0-5); WBC,URINE 0-5 (0-5)
[2023-01-27] MEDS: HYDROmorphone 1 MG/ML Syringe IVPUSH PRN ×3 (03:50→09:36)
[2023-01-27] MEDS: Sodium Chloride 0.9% 1,000 ML IV SCH (06:15)
[2023-01-27] MEDS: Insulin Lispro 100 Unit/ML 3 ML KwikPen SUBCUT SCH ×4 (07:55→21:02)
[2023-01-27] MEDS ORDERED: Neostigmine Methylsulfate 10 MG/10 ML MDV ONE (08:27)
[2023-01-27] MEDS ORDERED: Ondansetron 4 MG/2 ML SDV ONE (08:27)
[2023-01-27] MEDS ORDERED: Succinylcholine 200 MG/10 ML MDV ONE (08:27)
[2023-01-27] MEDS ORDERED: Propofol 200 MG/20 ML SDV ONE (08:27)
[2023-01-27] MEDS ORDERED: Glycopyrrolate 0.2 MG/ML 5 ML MDV ONE (08:27)
[2023-01-27] MEDS ORDERED: fentaNYL 250 MCG/5 ML SDV ONE (08:27)
[2023-01-27] MEDS ORDERED: Dexamethasone 4 MG/ML SDV ONE (08:27)
[2023-01-27] MEDS ORDERED: Rocuronium 50 MG/5 ML Vial ONE (08:27)
[2023-01-27] MEDS: Lisinopril 10 MG Tab PO SCH (09:38)
[2023-01-27] MEDS: Empagliflozin 10 MG Tab PO SCH (09:46)
[2023-01-27] MEDS ORDERED: ceFAZolin 1 GM Vial ONE (11:25)
[2023-01-27] MEDS ORDERED: Sodium Chloride 0.9% 10 ML ONE (11:25)
[2023-01-27] MEDS: Bupivacaine 0.5% 50 ML MDV ONE ×2 (11:44→12:20)
[2023-01-27] MEDS ORDERED: Acetaminophen/HYDROcodone 325-5 MG Tab PO PRN (12:36)
[2023-01-27] MEDS ORDERED: Sodium Chloride 0.9% 1,000 ML IV SCH (12:45)
[2023-01-27] MEDS: traMADol 50 MG Tab PO PRN ×3 (13:52→23:55)
[2023-01-27] MEDS: metFORMIN 500 MG Tab PO SCH (17:35)
[2023-01-27] MEDS ORDERED: Aspirin 81 MG Tab.EC PO SCH (21:00)
[2023-01-28] MEDS: Acetaminophen/HYDROcodone 325-5 MG Tab PO PRN ×2 (03:06→09:48)
[2023-01-28] MEDS: traMADol 50 MG Tab PO PRN ×2 (07:09→14:12)
[2023-01-28] MEDS: Insulin Lispro 100 Unit/ML 3 ML KwikPen SUBCUT SCH ×2 (08:06→12:37)
[2023-01-28] MEDS: Lisinopril 10 MG Tab PO SCH (08:08)
[2023-01-28] MEDS: Empagliflozin 10 MG Tab PO SCH (08:08)
[2023-01-28] MEDS: metFORMIN 500 MG Tab PO SCH (08:08)
[2023-01-28 11:49] VITALS: BP 103/45; PULSE 80
== END 2023-01-28 16:31 | disposition home or self-care (01) | DRG 494 ==
LOC: JP.ED 17:44 → JP.MS 21:01
PROVIDERS: ADMIT Hospitalist; ATTEND Hospitalist
PROC: 0QSJ04Z Reposition Right Fibula with Internal Fixation Device, Open Approach (ICD-10-PCS; principal; 2023-01-27 10:15)
DX: S82.841A Displaced bimalleolar fracture of right lower leg, initial encounter for closed fracture (principal); I10 Essential (primary) hypertension; E78.00 Pure hypercholesterolemia, unspecified; E11.42 Type 2 diabetes mellitus with diabetic polyneuropathy; E78.5 Hyperlipidemia, unspecified; Z20.822 Contact with and (suspected) exposure to COVID-19; Z11.52 Encounter for screening for COVID-19; Z79.82 Long term (current) use of aspirin; Z79.899 Other long term (current) drug therapy; Z98.890 Other specified postprocedural states; Z79.84 Long term (current) use of oral hypoglycemic drugs; Z87.442 Personal history of urinary calculi; W00.0XXA Fall on same level due to ice and snow, initial encounter; Y92.89 Other specified places as the place of occurrence of the external cause
CPT/HCPCS: 0241U; 29515; 36415; 73610; 73630; 76000; 80053; 81001; 82150; 82947; 83690; 85025; 93005; 97116; 97161; 97165; 97530; 99222; 99231; 99238; 99284; 27814; 93010; A9270-GY; C1713; C9113; J0330; J0690; J1100; J1170; J1815; J2405; J2704; J2710; J3010; J3490; J7030

== ENCOUNTER 2023-02-02 14:26 | Emergency (ER) | payer MEDICARE, BC ==
[2023-02-02 17:57] VITALS: BP 113/58; PULSE 89
== END 2023-02-02 20:24 | disposition home or self-care (01) ==
LOC: JP.ED 14:26
DX: R60.0 Localized edema (principal); E78.00 Pure hypercholesterolemia, unspecified; I10 Essential (primary) hypertension; E11.9 Type 2 diabetes mellitus without complications; Z79.82 Long term (current) use of aspirin; Z79.899 Other long term (current) drug therapy
CPT/HCPCS: 36415; 85379; 93971-RT; 99284